=== PATIENT | male | born 1980 | race Caucasian/White ===

== ENCOUNTER 2019-01-23 23:17 | Emergency (ER) | payer OTHER ==
[~2019-01-23] VITALS: Ht 175.3 cm; Wt 82.7 kg
[2019-01-23] MEDS ORDERED: FLEXERIL 1010 MG/TAB PO (23:30)
[2019-01-24 01:07] VITALS: BP 127/83; PULSE 52; TEMP 98.1
== END 2019-01-24 01:20 | disposition home or self-care (01) ==
LOC: COL.ER 23:17
DX: T18.128A Food in esophagus causing other injury, initial encounter (principal)
CPT/HCPCS: J2250; J3010

== ENCOUNTER → 2021-11-29 | Outpatient (CLI) | payer OTHER ==
[~2021-11-29] MED LIST: FLEXERIL 1010 MG/TAB PO
== END ==
LOC: MHCPAIN 13:07
DX: M54.2 Cervicalgia (principal); M54.12 Radiculopathy, cervical region
CPT/HCPCS: G0463